=== PATIENT | female | born 1975 | race Caucasian/White ===

== ENCOUNTER 2018-03-25 10:01 | Day surgery (SDC) | payer BC ==
[~2018-03-25 10:01] MED LIST: Buffered Lidocaine 0.9% SYRIN* 5 ML/SYR SYRINGE INTRADERM ONE
[2018-03-25] MEDS ORDERED: Buffered Lidocaine 0.9% SYRIN* 5 ML/SYR SYRINGE ONE (10:16)
[2018-03-25] MEDS ORDERED: Oxymetazoline 0.05% NASAL SPR* 15 ML BTL ONE ×2 (12:06→12:58)
[2018-03-25] MEDS ORDERED: fentaNYL* 50 MCG/ML 2 ML VIAL (100 MCG VIAL) ONE ×3 (12:13→15:09)
[2018-03-25] MEDS ORDERED: Midazolam* 1 MG/ML 2 ML VIAL (2 MG) ONE (12:13)
[2018-03-25] MEDS ORDERED: Bacitracin OINTMENT* 0.5% 0.5 oz TUBE ONE (12:59)
[2018-03-25] MEDS ORDERED: Lidocaine 4% TOPICAL* 50 ML TOP.SOLN ONE (12:59)
[2018-03-25] MEDS ORDERED: Lidocain 1% EPI 1:100,000 * 30 ML MDV ONE (12:59)
[2018-03-25] MEDS ORDERED: Dexamethasone IV* 4 MG/ML 1 ML (4 MG) ONE (13:38)
[2018-03-25] MEDS ORDERED: DiMENhydriNATE IV* 50 MG/ML VIAL ONE (13:38)
[2018-03-25] MEDS ORDERED: Lidocaine 2% PF * 5 ML VIAL ONE (13:38)
[2018-03-25] MEDS ORDERED: Famotidine IV* 10 MG/ML 2 ML (20 mg) ONE (13:38)
[2018-03-25] MEDS ORDERED: Mivacurium Chloride* 20 MG/10 ML VIAL IV ONE (13:38)
[2018-03-25] MEDS ORDERED: Propofol* 10 MG/ML 20 ML BTL IV PUSH ONE (13:38)
[2018-03-25] MEDS ORDERED: fentaNYL* 50 MCG/ML 2 ML VIAL (100 MCG VIAL) IV PRN (13:41)
[2018-03-25] MEDS ORDERED: Ondansetron INJ* 2 MG/ML VIAL IV PRN (13:41)
[2018-03-25] MEDS ORDERED: Levalbuterol 0.63MG/3ML NEB* UNIT OF USE INH PRN (13:41)
[2018-03-25] MEDS ORDERED: HYDROcodone/ACETAMIN 5-325 MG* 1 TAB PO PRN (13:41)
[2018-03-25] MEDS ORDERED: Acetaminophen TAB* 325 MG PO PRN (13:41)
[2018-03-25] MEDS ORDERED: PROCHLORPERAZINE INJ 5 MG/ML 2 ML VIAL IV PRN (13:41)
[2018-03-25] MEDS ORDERED: Naloxone* 0.4 MG/ML 1 ML VIAL IV PRN (13:41)
[2018-03-25] MEDS ORDERED: Triamcinolone Acetonide* 40 MG/ML 1 ML VIAL ONE (14:35)
[2018-03-25] MEDS ORDERED: oxyCODONE ORAL.SOLN* 5 MG/5 ML UDC ONE (15:55)
[2018-03-25] MEDS ORDERED: Ibuprofen TAB* 400 MG ONE (17:00)
[2018-03-25 17:10] VITALS: BP 137/98
--- NOTE | 2018-03-26 10:49 | OP ---
DATE OF OPERATION: 03/25/18 - [facility] DATE OF : 73 SURGEON: Davin Campos MD COMPUTER SUPPORT SPECIALIST INSTRUCTOR: None. ANESTHESIA: General. PRE-OP DIAGNOSIS: Chronic sinusitis. POST-OP DIAGNOSIS: Chronic sinusitis. OPERATIVE PROCEDURE: Bilateral endoscopic sinus surgery, specifically bilateral frontal sinusotomy utilizing the balloon sinuplasty device, bilateral total ethmoidectomy, bilateral maxillary antrostomy with removal of polyp. ESTIMATED BLOOD LOSS: Approximately 75 cc. SPECIMENS: Right and left sinus contents to Pathology. INDICATION: This is a 42-year-old woman who has had problems with chronic polypoid sinusitis, which has been difficult to control and manage medically. The decision was made to proceed with bilateral endoscopic sinus surgery as an adjunct treatment. DETAILS OF PROCEDURE: On 03/25/18, the patient was brought to the operating room, general anesthesia was induced. An oral endotracheal tube was placed. The image guidance system was set up and registered and appeared to be accurate. The patient was then draped and time-out was performed. Both nasal cavities were packed with pledgets soaked in 4% lidocaine and Afrin. Lidocaine 1% with 1:100,000 epinephrine was then used to infiltrate the grid of the middle turbinate and lateral nasal borrero bilaterally. Once adequate time had been allotted for vasoconstriction, the procedure was begun. The balloon sinuplasty device was brought into the field with the frontal adapter. The left frontal sinus was addressed first. The lighted guidewire was threaded easily into the frontal recess and obvious positive transillumination was seen in the forehead. The balloon was advanced over the guidewire and inflated at multiple locations along the frontal outflow tract. The right nasal cavity was then entered with the balloon sinuplasty device and again the lighted guidewire was threaded easily in the frontal recess into the frontal sinus with positive illumination of the sinus through the forehead and the sinuplasty device was then inflated. It was inflated along multiple regions of the outflow tract. At this point, attention was turned back to the left nasal cavity. The uncinate process was taken down with microdebrider and a sickle knife. The maxillary ostium was identified. It was enlarged with a combination of straight and backbiting through-cutters, as well as the microdebrider. The ethmoid below was then entered. Ethmoid air cells were taken down inferiorly from anteriorly to posteriorly and then bony partitions were removed from posteriorly to anteriorly, utilizing a combination of up-angled through-cutting devices and the microdebrider, visualized with 30-degree scope. Attention was then turned to the right nasal cavity. Similar procedure was performed. Again, uncinectomy was performed with the microdebrider and sickle knife. The maxillary antrum was then identified and enlarged surgically with a microdebrider and through-cutting instrumentation and the ethmoidectomy was completed, entering the ethmoid bulla with a J-curette, exenterating the inferior aspect of the ethmoid air cells from anteriorly to posteriorly and then taking down bone and partitions from posteriorly, back anteriorly. Throughout the procedure hemostasis was achieved by packing with Afrin-soaked pledgets. From [id number] the navigation systems was used to confirm anatomic landmarks and to assure integrity of the orbit and the skull base. At the conclusion of the case, Stammberger Sinu-Foam gel was made up. Then 1 cc of Kenalog 40 was added to the mixture to provide some topical steroid and it was placed in both ethmoid cavities. The middle turbinates were fulgurized and then small Amrik Merocel packs were placed to keep the turbinates medialized. A drip pad was applied. The patient was then returned to the care of the anesthesiologist, extubated and delivered to the PACU in stable condition. [id number]/[facility] #: [id number] CHRISTOPHE
== END 2018-03-25 17:16 | disposition home or self-care (01) ==
LOC: OR 10:01
PROVIDERS: ATTEND Otolaryngology
DX: J32.4 Chronic pansinusitis (principal); J45.909 Unspecified asthma, uncomplicated; K21.9 Gastro-esophageal reflux disease without esophagitis
CPT/HCPCS: 88305; 88311; A9270-GY; J1100; J1240; J2250; J2704; J3010; J3301

== ENCOUNTER 2018-07-05 07:13 | Emergency (ER) | payer BC ==
[2018-07-05] MEDS ORDERED: Albuterol/Ipratropium NEB.SOL* Albuterol 2.5 MG/Ipratropium 0.5 MG 3 ML INH ONE (07:28)
[2018-07-05] MEDS ORDERED: predniSONE TAB* 20 MG PO ONE (07:28)
--- NOTE | 2018-07-05 07:49 | ED ---
Shortness of Breath - HPI Summary HPI Summary: Patient is a 43 y/o F w/ c/o URI and asthma exacerbation. Pt see at [facility] and was Dx w/ URI. Sx onset two weeks ago, worsened overnight. Patient reports wheezing as well. She notes coughing last night and inability to sleep secondary to cough and SOB. Fever, chest pain is denied. On triage, pain is denied and nothing is noted to aggravate/alleviate Sx. Patient states she has been using her sons nebulizer and albuterol. She reports only temporary relief from Sx w/ these measures. At [facility], was given prednisone for two days but notes no relief as well. Patient has had breathing tests and Dx w/ asthma. Prior to this, patient states she has not had these Sx in "a long time". She denies smoking. Patient reports Hx of sinus problems and allergies. FMHx of asthma in mother is noted. - History of Current Complaint Chief Complaint: EDAsthma Time Seen by Provider: 07/05/18 07:28 Hx Obtained From: Patient Onset/Duration: Lasting Weeks - two weeks original onset, Still Present, Worse Since - overnight Timing: Constant Current Severity: None Aggrevating Factors: Nothing Alleviating Factors: Nothing - Allergy/Home Medications Allergies/Adverse Reactions: Allergies Allergy/AdvReac Type Severity Reaction Status Date / Time No Known Allergies Allergy Verified 07/05/18 07:18 PMH/Surg Hx/FS Hx/Imm Hx Endocrine/Hematology History: Denies: Hx Bone Marrow Disease, Hx Diabetes, Hx Sickle Cell Disease, Hx Thyroid Disease, Hx Anemia Cardiovascular History: Denies: Hx Hypertension Respiratory History: Reports: Hx Asthma - INHALER PRN, Other Respiratory Problems/Disorders - CHRONIC PANSINUSITIS FOR PAST 4 YRS Denies: Hx Chronic Obstructive Pulmonary Disease (COPD) GI History: Denies: Hx Ulcer Sensory History: Reports: Hx Contacts or Glasses Denies: Hx Cataracts, Hx Glaucoma, Hx Hearing Aid Opthamlomology History: Reports: Hx Contacts or Glasses Denies: Hx Cataracts, Hx Glaucoma - Surgical History [place] Procedure, [place], and [place] [facility] [place] [facility] [place] [facility] [place] Anesthesia Reactions: No Infectious Disease History: No Infectious Disease History: Denies: Hx Hepatitis, Hx Human Immunodeficiency Virus (HIV), Traveled Outside the [place] in Last 30 Days - Family History Known Family History: Positive: Respiratory Disease - mother has asthma - Social History Alcohol Use: None Substance Use Type: Reports: None Hx Tobacco Use: No Smoking Status (MU): Never Smoked Tobacco Have You Smoked in the Last Year: No Review of Systems Negative: Fever Negative: Chest Pain Positive: Shortness Of Breath, Cough, Other - wheezing All Other Systems Reviewed And Are Negative: Yes Physical Exam - Summary Physical Exam Summary: Appearance: Well appearing, no pain distress Skin: warm, dry, reflects adequate perfusion Head/face: normal Eyes: EOMI, KENY ENT: normal Neck: supple, non-tender Respiratory: expiratory wheezes in both bases, breath sounds present; no other abnormal findings noted. Cardiovascular: RRR, pulses symmetrical Abdomen: non-tender, soft Bowel Sounds: present Musculoskeletal: normal, strength/ROM intact Neuro: normal, sensory motor intact, A&Ox3 Triage Information Reviewed: Yes Vital Signs On Initial Exam: Initial Vitals Temp Pulse Resp BP Pulse Ox 98.3 F 76 16 112/81 97 07/05/18 07:15 07/05/18 07:15 07/05/18 07:15 07/05/18 07:15 07/05/18 07:15 Vital Signs Reviewed: Yes Diagnostics - Vital Signs Vital Signs Temp Pulse Resp BP Pulse Ox 07/05/18 07:28 84 15 98 07/05/18 07:26 78 119/93 98 07/05/18 07:15 98.3 F 76 16 112/81 97 - Laboratory Lab Statement: Any lab studies that have been ordered have been reviewed, and results considered in the medical decision making process. Re-Evaluation - Re-Evaluation First Eval Re-Evaluation Time: 08:28 Change: Improved Comment: Patient reports feeling better. She will be discharged to home with prescriptions and patient is agreeable with this plan Course/Dx - Course Course Of Treatment: Patient with a history of asthma with wheezing on exam. Improved subjectively and objectively with breathing treatments, steroid. Continue same and prescribed controller medication to follow. Follow-up primary care physician. - Diagnoses Differential Diagnosis/HQI/PQRI: Positive: Asthma, Bronchitis, COPD Exacerbation Provider Diagnoses: Acute asthma exacerbation Discharge - Sign-Out/Discharge Documenting (check all that apply): Patient Departure - discharge - Discharge Plan Condition: Improved Disposition: HOME Prescriptions: Albuterol/Ipratropium NEB.ALEXANDER* [Duoneb (Albuterol 2.5 MG/Ipratropium 0.5 MG)] 1 neb INH Q6H PRN #1 box PRN Reason: Shortness Of Breath Fluticasone DISKUS 250 MCG(NF) [Flovent Diskus 250 MCG(NF)] 1 puff INH BID #1 diskus predniSONE TAB* [Deltasone TAB*] 50 mg PO DAILY #5 tab Patient Education Materials: Asthma (ED) Referrals: Tomasa Chapin MD [Primary Care Provider] - Additional Instructions: Use breathing treatments every 6 hours as needed. You will need to be on a controller medication long-term. Return with difficulty breathing, worse, fever , new symptoms or other concerns. - Billing Disposition and Condition Condition: IMPROVED Disposition: Home - Attestation Statements Document Initiated by Coleman: Yes Documenting Scribe: Faustino Prado Provider For Whom Jhonnyibe is Documenting (Include Credential): Rafiq Mancini MD Scribe Attestation: IFaustino, scribed for Rafiq Mancini MD on 07/05/18 at 0914. Scribe Documentation Reviewed: Yes Provider Attestation: The documentation as recorded by the Faustino jordan accurately reflects the service I personally performed and the decisions made by me, Rafiq Mancini MD
[2018-07-05 08:22] VITALS: BP 117/95
== END 2018-07-05 08:34 | disposition home or self-care (01) ==
LOC: ED 07:13
DX: J45.901 Unspecified asthma with (acute) exacerbation (principal)
CPT/HCPCS: 99282; A9270-GY; J7512

== ENCOUNTER 2019-12-18 14:32 | Emergency (ER) | payer BC ==
[2019-12-18] MEDS ORDERED: Acetaminophen TAB* 325 MG PO ONE (15:43)
[2019-12-18] MEDS ORDERED: Ketorolac TAB * 10 MG TAB PO ONE (15:45)
--- NOTE | 2019-12-18 15:45 | ED ---
Upper Extremity Pain - HPI Summary HPI Summary: This patient is a 44 year old F [place] [facility] [place] with a chief complaint of left arm pain since 2 days ago. Symptoms aggravated by movement of arm. Symptoms alleviated by nothing. Patient reports voice lost yesterday, cough, both arms hurt in wrist but left arm pain from finger going to left shoulder that started 2 days ago. Also reports occular migraine on left side 2 days ago (left eye got blurry where she could not see half her face which went away in 1 hr and after felt tired). Denies headache. Denies numbness or tingling in any part of her body except for tingling in the left palm of her hand since on and off. Pt reports right before David she could not move wrists and thought she may have carpal tunnel. She is a teacher. Denies falling or sleeping on her arms weird. Broke left elbow a few yrs ago with similar pain but this time it is random with no accident/injury prior. Denies htn diabetes. Hx recent paronychia. - History of Current Complaint Chief Complaint: EDGeneral Stated Complaint: SOB/LEFT SIDED WEAKNESS/HAND SWELLING PER PT Time Seen by Provider: 12/18/19 15:09 Hx Obtained From: Patient Hx Last Menstrual Period: 12/28/12 Onset/Duration: Started Days Ago, Still Present Timing: Constant Pain Location: Shoulder, Arm, Wrist, Hand, Finger Aggravating Factor(s): Nothing Alleviating Factor(s): Nothing Associated Signs & Symptoms: Positive: Numbness/Tingling, Other - migraine, cough, lost voice, blurry vision - Allergies/Home Medications Allergies/Adverse Reactions: Allergies Allergy/AdvReac Type Severity Reaction Status Date / Time No Known Allergies Allergy Verified 12/18/19 14:37 PMH/Surg Hx/FS Hx/Imm Hx Endocrine/Hematology History: Denies: Hx Bone Marrow Disease, Hx Diabetes, Hx Sickle Cell Disease, Hx Thyroid Disease, Hx Anemia Cardiovascular History: Denies: Hx Hypertension Respiratory History: Reports: Hx Asthma - INHALER PRN, Other Respiratory Problems/Disorders - CHRONIC PANSINUSITIS FOR PAST 4 YRS Denies: Hx Chronic Obstructive Pulmonary Disease (COPD) GI History: Denies: Hx Ulcer Sensory History: Reports: Hx Contacts or Glasses Denies: Hx Cataracts, Hx Glaucoma, Hx Hearing Aid Opthamlomology History: Reports: Hx Contacts or Glasses Denies: Hx Cataracts, Hx Glaucoma - Surgical History Surgery Procedure, Year, and Place[place] 2001 & [place] [facility] [place] [facility] [place] [facility] [place] [facility] [place]x Anesthesia Reactions: No Infectious Disease History: No Infectious Disease History: Denies: Hx Hepatitis, Hx Human Immunodeficiency Virus (HIV), Traveled Outside the [place] in Last 30 Days - Family History Known Family History: Positive: Respiratory Disease - mother has asthma - Social History Alcohol Use: None Substance Use Type: Reports: None Hx Tobacco Use: No Smoking Status (MU): Never Smoked Tobacco Have You Smoked in the Last Year: No Review of Systems Positive: Blurred Vision Positive: Other - voice lost Positive: Cough Positive: Other - arm pain, tingling All Other Systems Reviewed And Are Negative: Yes Physical Exam - Summary Physical Exam Summary: Constitutional: Well-developed, Well-nourished, Alert. (-) Distressed Skin: Warm, Dry HENT: hoarse voice Eyes: Conjunctiva normal Neck: Musculoskeletal ROM normal neck. (-) JVD, (-) Stridor, (-) Nuchal rigidity Cardio: Rhythm regular, rate normal, Heart sounds normal; Intact distal pulses; Radial pulses are 2+ and symmetric. (-) Murmur Pulmonary/Chest wall: Effort normal. (-) Respiratory distress, (-) Wheezes, (-) Rales Abd: Soft, (-) tenderness, (-) Distension, (-) Guarding, (-) Rebound Musculoskeletal: tenderness of left ac joint, pain with rom flexion and extension of left wrist, 2+ radial pulse. SILT. Negative tinels sign Lymph: (-) Cervical adenopathy Neuro: Alert, Oriented x3 Psych: Mood and affect Normal Triage Information Reviewed: Yes Vital Signs On Initial Exam: Initial Vitals Temp Pulse Resp BP Pulse Ox 98.2 F 86 16 146/108 98 12/18/19 14:34 12/18/19 14:34 12/18/19 14:34 12/18/19 14:34 12/18/19 14:34 Vital Signs Reviewed: Yes Procedures - Sedation Patient Received Moderate/Deep Sedation with Procedure: No Diagnostics - Vital Signs Vital Signs Temp Pulse Resp BP Pulse Ox 12/18/19 14:34 98.2 F 86 16 146/108 98 - Laboratory Lab Statement: Any lab studies that have been ordered have been reviewed, and results considered in the medical decision making process. Re-Evaluation - Re-Evaluation First Eval Re-Evaluation Time: 16:22 Comment: discharge instructions Course/Dx - Course Course Of Treatment: 44 y/o F presenting with left arm pain. Physical exam with tenderness at the AC joint, mild tenderness with flexion-extension of the wrist. Full strength and range of motion throughout. 2+ radial pulse, sensation intact light touch. Suspect possible musculoskeletal strain and/or nerve impingement. No neck pain or cervical spine TTP. Patient also does have URI, with hoarse voice. No shortness of breath, no fevers. Do not suspect pneumonia. Patient was given Toradol, Tylenol, lidocaine patch. Will be discharged with Motrin and Flexeril as needed. Follow-up with primary care doctor or return for worsening symptoms. - Diagnoses Provider Diagnoses: Shoulder pain, URI (upper respiratory infection) Discharge ED - Sign-Out/Discharge Documenting (check all that apply): Patient Departure - discharge - Discharge Plan Condition: Stable Disposition: HOME Prescriptions: Cyclobenzaprine TAB* [Flexeril 10 MG TAB*] 10 mg PO TID PRN 4 Days #12 tab PRN Reason: Pain - Moderate Ibuprofen TAB* [Motrin TAB* 800 MG] 800 mg PO TID PRN 10 Days #30 tab PRN Reason: Pain - Moderate Patient Education Materials: Arthralgia (ED), Shoulder Pain (ED) Referrals: Tomasa Cahpin MD [Primary Care Provider] - 3 Days Additional Instructions: You were seen in the emergency department for shoulder and wrist pain as well as an upper respiratory infection. Please take motrin 800 mg as needed for pain, flexeril at night for muscle spasms. Please follow up with your primary care doctor if you have continued symptoms. Please follow up with your primary care doctor in next 2-3 days and return to emergency department for trouble breathing, weakness, numbness, worsening or concerning symptoms. It was a pleasure taking care of you today. - Billing Disposition and Condition Condition: STABLE Disposition: Home - Attestation Statements Document Initiated by Scribe: Yes Documenting Scribe: Mariia Winslow Provider For Whom Scribe is Documenting (Include Credential): Dr. Cooper Mcgee MD Scribe Attestation: Mariia George, scribed for Dr. Cooper Mcgee MD on 12/18/19 at 1635. Scribe Documentation Reviewed: Yes Provider Attestation: The documentation as recorded by the scribe, Mariia Winslow accurately reflects the service I personally performed and the decisions made by me, Dr. Cooper Mcgee MD Status of Scribe Document: Viewed
[2019-12-18 16:28] VITALS: BP 121/85
[2019-12-18] MEDS ORDERED: Lidocaine Patch REMOVE* 1 NOTE MISC SCH ×2 (21:00)
[2019-12-19] MEDS ORDERED: Lidocaine PATCH 5%* 1 PATCH TRANSDERM SCH (09:00)
== END 2019-12-18 16:23 | disposition home or self-care (01) ==
LOC: ED 14:32
DX: M25.512 Pain in left shoulder (principal); J06.9 Acute upper respiratory infection, unspecified; J45.909 Unspecified asthma, uncomplicated; Z98.51 Tubal ligation status; Z90.49 Acquired absence of other specified parts of digestive tract
CPT/HCPCS: 99282; A9270-GY

== ENCOUNTER 2020-03-27 21:00 | Observation (INO) ==
[2020-03-28 01:21] LABS: Albumin 3.6 g/dL (3.2-5.2); Albumin/Globulin Ratio 0.8 (1-3); BUN/Creatinine Ratio 10.7 (8-20); Calcium 9.3 mg/dL (8.6-10.3); EGFR African American 101.1 (>60); EGFR Non-African American 83.6 (>60); Globulin 4.3 g/dL (2-4); Potassium 4.1 mmol/L (3.5-5.0); Total Bilirubin 0.3 mg/dL (0.2-1.0); Total Protein 7.9 g/dL (6.4-8.9)
[2020-03-28] MEDS ORDERED: oxyCODONE/Acetamin 5/325 mg TAB PO ONE (02:22)
[2020-03-28 02:30] LABS: ABS Basophils 0.3 10^3/ul (0-0.2); ABS Eosinophils 36.8 10^3/ul (0-0.6); ABS Lymphocytes 2.2 10^3/ul (1.0-4.8); Eosinophil % 82.4 %; Hematocrit 40 % (35-47); Hemoglobin 14.2 g/dL (12.0-16.0); Mean Corpuscular HGB Conc 36 g/dL (31-36); Mean Corpuscular Hemoglobin 32 pg (27-31); Mean Corpuscular Volume 90 fL (80-97); Mean Platelet Volume 6.8 fL (7.4-10.4); Platelet Count 313 10^3/uL (150-450); Red Blood Count 4.46 10^6 /uL (3.70-4.87); Red Cell Distribution Width 14 % (10-15); White Blood Count 44.7 10^3/uL (3.5-10.8)
[2020-03-28 03:23] LABS: C Reactive Protein 40.5 mg/L (<8.01)
[2020-03-28 04:10] LABS: Erythrocyte Sed Rate 77 mm/Hr (0-19)
[2020-03-28] MEDS ORDERED: Albuterol/Ipratropium NEB.SOL (2.5/0.5 MG) 3 ML NEB.SOLN INH PRN (04:23)
[2020-03-28 05:01] LABS: Creatine Kinase 112 U/L (10-223)
[2020-03-28 05:24] LABS: Rheumatoid Factor 54 IU/mL (<15)
[2020-03-28] MEDS: Mometasone/Formoter 200/5 MDI INH SCH ×2 (08:14→19:36)
[2020-03-28] MEDS: oxyCODONE/Acetamin 5/325 mg TAB PO PRN ×3 (09:05→22:01)
[2020-03-28 12:24] LABS: ABS Basophils 0.4 10^3/ul (0-0.2); ABS Eosinophils 38.2 10^3/ul (0-0.6); ABS Lymphocytes 2.5 10^3/ul (1.0-4.8); Eosinophil % 78.2 %; Hematocrit 40 % (35-47); Hemoglobin 13.7 g/dL (12.0-16.0); Lymphocyte % 5.1 %; Mean Corpuscular HGB Conc 34 g/dL (31-36); Mean Corpuscular Hemoglobin 31 pg (27-31); Mean Corpuscular Volume 90 fL (80-97); Mean Platelet Volume 6.6 fL (7.4-10.4); Platelet Count 310 10^3/uL (150-450); Red Blood Count 4.44 10^6 /uL (3.70-4.87); Red Cell Distribution Width 13 % (10-15); White Blood Count 48.8 10^3/uL (3.5-10.8)
[2020-03-28 12:25] LABS: BUN/Creatinine Ratio 11.3 (8-20); Calcium 9.1 mg/dL (8.6-10.3); EGFR Non-African American 104.1 (>60); Potassium 3.7 mmol/L (3.5-5.0)
[2020-03-28] MEDS ORDERED: Prochlorperazine 5 mg/ml 2 ml VIAL (10 mg) IV PRN (16:18)
[2020-03-28] MEDS ORDERED: Ondansetron 4 mg VIAL 2 MG/ML 2 ml VIAL IV PRN (21:04)
[2020-03-29] MEDS: oxyCODONE/Acetamin 5/325 mg TAB PO PRN ×3 (04:53→20:37)
[2020-03-29] MEDS: Mometasone/Formoter 200/5 MDI INH SCH ×2 (07:44→20:22)
[2020-03-29 08:02] LABS: Albumin 3.4 g/dL (3.2-5.2); Albumin/Globulin Ratio 0.9 (1-3); BUN/Creatinine Ratio 11.4 (8-20); EGFR African American 109.5 (>60); EGFR Non-African American 90.5 (>60); Indirect Bilirubin 0.3 mg/dL (0.3-1.0); Potassium 3.8 mmol/L (3.5-5.0); Total Bilirubin 0.4 mg/dL (0.2-1.0); Total Protein 7.4 g/dL (6.4-8.9)
[2020-03-29 08:23] LABS: Hematocrit 39 % (35-47); Hemoglobin 13.5 g/dL (12.0-16.0); Mean Corpuscular HGB Conc 35 g/dL (31-36); Mean Corpuscular Hemoglobin 31 pg (27-31); Mean Corpuscular Volume 90 fL (80-97); Mean Platelet Volume 6.7 fL (7.4-10.4); Platelet Count 315 10^3/uL (150-450); Red Blood Count 4.35 10^6 /uL (3.70-4.87); Red Cell Distribution Width 13 % (10-15); White Blood Count 45.9 10^3/uL (3.5-10.8)
[2020-03-29 09:36] LABS: ABS Basophils 0.2 10^3/ul (0-0.2); ABS Eosinophils 36.2 10^3/ul (0-0.6); ABS Lymphocytes 2.4 10^3/ul (1.0-4.8); Lymphocyte % 5.2 %
[2020-03-29 22:15] LABS: Complement C3 241 mg/dL (75 - 175)
[2020-03-30] MEDS: oxyCODONE/Acetamin 5/325 mg TAB PO PRN (02:34)
[2020-03-30] MEDS: Mometasone/Formoter 200/5 MDI INH SCH (07:31)
[2020-03-30 11:55] VITALS: BP 117/66
[2020-03-30 15:12] LABS: JO-1 Antibody <0.2 U; RNP Antibody, IgG <0.2 U; SS-A/Ro Antibody <0.2 U; SS-B/La Antibody <0.2 U; Sm (Smith) IgG Antibody <0.2 U
[2020-03-30 15:42] LABS: Myeloperoxidase Antibody <0.2 U; Proteinase 3 <0.2 U
[2020-03-30 19:45] LABS: Immunoglobulin A 318 mg/dL (61 - 356); Immunoglobulin G 1870 mg/dL (767 - 1590); Immunoglobulin M 222 mg/dL (37 - 286)
== END 2020-03-30 12:05 | disposition home or self-care (01) ==
LOC: MED 21:00 → ED 21:00 → MED 03-28 07:25
PROVIDERS: ADMIT Internal Medicine; ATTEND Internal Medicine